=== PATIENT | male | born 1990 | race Hispanic/Latino ===

== ENCOUNTER 2017-06-16 15:09 | Emergency (ER) | payer SELFPAY | END 2017-06-16 15:50 | disposition home or self-care (01) | LOC: ERS 15:09 | DX: B35.4 Tinea corporis (principal); L08.9 Local infection of the skin and subcutaneous tissue, unspecified; I10 Essential (primary) hypertension; F17.210 Nicotine dependence, cigarettes, uncomplicated | CPT/HCPCS: 99282 ==